=== PATIENT | female | born 1985 | race Caucasian/White ===

== ENCOUNTER 2017-03-11 10:59 | Observation (INO) | payer SELFPAY ==
[~2017-03-11] VITALS: Ht 152.4 cm; Wt 64.4 kg
[2017-03-11] MEDS ORDERED: ACETAMINOPHEN 500MG TABLET PO NR (11:30)
[2017-03-11] MEDS ORDERED: PREN-88 PO (11:42)
[2017-03-11] MEDS ORDERED: FOLI-43 PO (11:43)
[2017-03-11] MEDS ORDERED: FERR-63 PO (11:44)
== END 2017-03-11 14:51 | disposition home or self-care (01) ==
LOC: L&D 10:59
PROVIDERS: ADMIT Obstetrics & Gynecology; ATTEND Obstetrics & Gynecology
DX: O26.892 Other specified pregnancy related conditions, second trimester (principal); R10.9 Unspecified abdominal pain; Z3A.25 25 weeks gestation of pregnancy
CPT/HCPCS: 76805; 76818; 99281; G0378